=== PATIENT | female | born 1975 | race Caucasian/White ===

== ENCOUNTER 2020-11-14 14:15 | Emergency (ER) | payer BC ==
--- NOTE | 2020-11-14 14:40 | EDM.PDOC ---
ED HPI GENERAL MEDICAL PROBLEM - General Chief Complaint: Abdominal Pain Stated Complaint: constipation Time Seen by Provider: 11/14/20 14:30 Source of Information: Reports: Patient History Limitations: Reports: No Limitations - History of Present Illness INITIAL COMMENTS - FREE TEXT/NARRATIVE: Patient is in the area camping and compains of rectal pressure, constipation and some rectal bleeding. States she does not usually have constipation, no foods cause problems for her. She states last bowel movement was 3 days ago. She attempt to pass a stool today and spent three hours on the toliet straining to pass a stool. Noted swelling, some blood from the straining. ON control, no chance of , no urinary problems and no vaginal discharge. Minimal abdominal discomfort, did eat today. Onset Date: 11/11/20 Duration: Day(s): Rectal Pain Score (Numeric/FACES): 5 - Related Data Allergies Allergy/AdvReac Type Severity Reaction Status Date / Time No Known Allergies Allergy Verified 11/14/20 14:52 Home Meds: Home Meds . [No Known Home Meds] 11/14/20 [History] Past Medical History - Past Surgical History Other Surgical History Comment: none Social & Family History - Tobacco Use Tobacco Use Status *Q: Current Every Day Tobacco User - Alcohol Use Alcohol Use History: Yes Alcohol Use in Last Twelve Months: Yes Alcohol Use Frequency: Weekly - Recreational Drug Use Recreational Drug Use: No Drug Use in Last 12 Months: No - Sexual History Sexual History: Reports: Vaginal [place] Other Sexual History Comment: on oral control ED ROS GENERAL - Review of Systems Review Of Systems: See Below Constitutional: Reports: No Symptoms HEENT: Reports: No Symptoms Respiratory: Reports: No Symptoms Cardiovascular: Reports: No Symptoms Endocrine: Reports: No Symptoms GI/Abdominal: Reports: Abdominal Pain (mild, consistent with constipation), Constipation, Other (some bleeding rectally with bearin down) : Reports: No Symptoms Musculoskeletal: Reports: No Symptoms Skin: Reports: No Symptoms Neurological: Reports: No Symptoms ED EXAM, GI/ABD - Physical Exam Exam: See Below Exam Limited By: No Limitations General Appearance: Alert, WD/WN, No Apparent Distress Eyes: Bilateral: EOMI Nose: Normal Inspection Throat/Mouth: Normal Inspection, Normal Lips, Normal Voice Head: Atraumatic, Normocephalic Neck: Normal Inspection, Supple, Full Range of Motion Respiratory/Chest: No Respiratory Distress, Lungs Clear, Normal Breath Sounds, Chest Non-Tender Cardiovascular: Normal Peripheral Pulses, Regular Rate, Rhythm, No Murmur GI/Abdominal Exam: Normal Bowel Sounds, Soft, Non-Tender, No Organomegaly, No Abnormal Bruit Rectal (Female) Exam: Normal Exam, Normal Rectal Tone, Other (stool in the rectal vault, soft, movable, normal color, no internal masses or hemorrhoids). No: Bloody Stool, Decreased Rectal Tone, Hemorrhoids Neurological: Alert, Oriented, Normal Cognition Course - Vital Signs Last Recorded V/S: Last Vital Signs Temp 37.4 C 11/14/20 14:23 Pulse 110 H 11/14/20 14:23 Resp 20 11/14/20 14:23 BP 96/81 11/14/20 14:23 Pulse Ox 99 11/14/20 14:23 - Re-Assessments/Exams Free Text/Narrative Re-Assessment/Exam: 11/14/20 14:49 45 year old female presents with constipation and rectal pressure. Normal external exam. stool in the rectal vault, soft. Offered enema, and discussed magnesium citrate that we would send home. Offered labs, ct extra, however with no reproducible abdominal pain, no fevers, and is eating normally, low yield. Declined offer for labs and ct. enema placed per nursing , advised to hold. send home with bottle of magnesium citrate to drink, encourage hydration 11/14/20 15:00 did not hold the enema very long, did not tolerate well. passed some stool, offered return as needed Departure - Departure Time of Disposition: 14:59 Disposition: Home, Self-Care 01 Condition: Fair Clinical Impression: Constipation - Discharge Information *PRESCRIPTION DRUG MONITORING PROGRAM REVIEWED*: Not Applicable *COPY OF PRESCRIPTION DRUG MONITORING REPORT IN PATIENT ODALYS: Not Applicable Instructions: Constipation, Adult Forms: ED Department Discharge Additional Instructions: You are encouraged to hydrate better, and are given a bottle of magnesium citrate to drink over the next hour. This will produce diarrhea. Due to this, remember to continue to hydrate. In the future, you can purchase magnesium cit rate over the counter for constipation. You can take a stool softener or miralax over the counter to help with mild problems. If you continue to feel unwell while in the area, you can return to the ED for laboratory and CT scans that were offered, but you declined. Sepsis Event Note (ED) - Evaluation Sepsis Screening Result: No Definite Risk - Focused Exam Vital Signs: Vital Signs Temp Pulse Resp BP Pulse Ox 11/14/20 14:23 37.4 C 110 H 20 96/81 99
[2020-11-14] MEDS: Magnesium Citrate Solution 296 ML Bottle PO ONE (15:12)
== END 2020-11-14 15:20 | disposition home or self-care (01) ==
LOC: LL.ED 14:15
DX: K59.00 Constipation, unspecified (principal); Z72.0 Tobacco use
CPT/HCPCS: 99283; A9270-GY